=== PATIENT | male | born 1950 | race Caucasian/White ===

== ENCOUNTER 2024-07-04 18:52 | Inpatient (IN) | payer MEDICARE, MEDICAID ==
[~2024-07-04] VITALS: Ht 177.8 cm; Wt 74.6 kg
[2024-07-04 20:07] LABS: APPEARANCE,URINE CLEAR (CLEAR); BILIRUBIN,URINE NEGATIVE (NEGATIVE); COLOR,URINE YELLOW (YELLOW); GLUCOSE, URINE (UA) NEGATIVE (NEGATIVE); KETONES,URINE NEGATIVE (NEGATIVE); LEUKOCYTE ESTERASE ,URINE NEGATIVE (NEGATIVE); NITRATE,URINE NEGATIVE (NEGATIVE); OCCULT BLOOD,URINE NEGATIVE (NEGATIVE); PH,URINE 5.5 (5.0-8.0); PH,URINE DRUG SCREEN 5.5 (5.0-8.0); PROTEIN,URINE NEGATIVE (NEGATIVE); SPECIFIC GRAVITIY, URINE 1.024 (1.003-1.030); UROBILINOGEN,URINE <=1.0 mg/dL (<=1.0)
[2024-07-04] MEDS ORDERED: FOLI-130 PO (20:12)
[2024-07-04] MEDS ORDERED: FLUO-418 PO (20:12)
[2024-07-04] MEDS ORDERED: DONE-52 PO (20:12)
[2024-07-04 20:15] LABS: ALCOHOL, URINE DRUG SCREEN NEGATIVE (NEGATIVE); AMPHET/METH SCREEN,URINE NEGATIVE (NEGATIVE); BARBITURATE SCREEN, URINE NEGATIVE (NEGATIVE); BENZODIAZEPINES SCREEN,URINE NEGATIVE (NEGATIVE); CANNABINOID SCREEN,URINE NEGATIVE (NEGATIVE); COCAINE SCREEN,URINE NEGATIVE (NEGATIVE); METHADONE SCREEN, URINE NEGATIVE (NEGATIVE); OPIATE SCREEN,URINE NEGATIVE (NEGATIVE); PHENCYCLIDINE SCREEN,URINE NEGATIVE (NEGATIVE)
[2024-07-04 20:35] LABS: COVID AG,FIA SOURCE NASAL SWAB
[2024-07-04 20:50] LABS: EOSINOPHILS % (AUTO) 2.7 % (1.0-6.0); HEMATOCRIT 43.9 % (41-53); HEMOGLOBIN 14.8 g/dL (13.5-17.5); LYMPHOCYTES # (AUTO) 1.9 K/uL (1.0-4.8); LYMPHOCYTES % (AUTO) 26.7 % (22.0-44.0); MEAN CORPUSCULAR HEMOGLOBIN 30.3 pg (26.0-34.0); MEAN CORPUSCULAR HGB CONC 33.7 G/dL (31.0-37.0); MEAN CORPUSCULAR VOLUME 90 fL (80-100); MONOCYTES # (AUTO) 0.7 K/uL (0.1-1.0); MONOCYTES % (AUTO) 9.5 % (2.0-9.0); NEUTROPHILS # (AUTO) 4.3 K/uL (1.8-7.7); NEUTROPHILS % (AUTO) 60.1 % (40.0-70.0); PLATELET COUNT (AUTO) 237 K/uL (150-450); RED BLOOD CELL COUNT(AUTO) 4.88 MIL/uL (4.50-5.90); RED CELL DISTRIBUTION WIDTH 13.9 % (11.5-14.5); WHITE BLOOD COUNT (AUTO) 7.1 K/uL (4.5-11.0)
[2024-07-04] MEDS: ACETAMINOPHEN 500 MG TABLET PO ONE (20:56)
[2024-07-04 20:58] LABS: SARS-COV2 (COVID) ANTIGEN,FIA Negative (Negative)
[2024-07-04 20:59] LABS: ANION GAP 10 mmol/L (8-16); CALCIUM, TOTAL 9.3 mg/dL (8.8-10.5); CARBON DIOXIDE 26 mmol/L (22-29); CHLORIDE 102 mmol/L (98-107); CREATININE 0.98 mg/dL (0.60-1.30); GLOMERULAR FILTR. RATE CALC > 60 mL/min (>60); GLUCOSE,RANDOM 93 mg/dL (70-110); POTASSIUM 3.7 mmol/L (3.5-5.1); SODIUM SERUM 138 mmol/L (136-145); UREA NITROGEN, BLOOD 12 mg/dL (7-18)
[2024-07-04 21:08] LABS: ALCOHOL, BLOOD (SERUM) < 3 mg/dL (0-10)
[2024-07-04] MEDS ORDERED: HALOPERIDOL 5 MG TABLET PO PRN (21:15)
[2024-07-05 01:59] VITALS: O2SAT 100
[2024-07-05] MEDS ORDERED: IBUPROFEN 600 MG TABLET PO PRN (02:00)
[2024-07-05 03:10] VITALS: BP 122/71; PULSE 62; RESP 18; TEMP 97.7; O2SAT 98
[2024-07-05] MEDS: LORazepam 2 MG TABLET PO PRN (03:35)
[2024-07-05] MEDS ORDERED: ONDANSETRON 4 MG TABLET PO PRN (04:15)
[2024-07-05] MEDS ORDERED: OMEPRAZOLE 20 MG CAPSULE PO PRN (04:15)
[2024-07-05] MEDS ORDERED: CloNIDine HCL 0.1 MG TABLET PO PRN (04:15)
[2024-07-05] MEDS ORDERED: MAGNESIUM HYDROXIDE SUSPENSION 30 ML UDCUP PO PRN ×2 (04:15→10:30)
[2024-07-05] MEDS ORDERED: PETROLATUM,WHITE 28 GM JELLY TP PRN (04:15)
[2024-07-05] MEDS ORDERED: MAG HYDROX/ALUMINUM HYD/SIMETH ES 30 ML SUSPENSION UDCUP PO PRN ×2 (04:15→10:30)
[2024-07-05] MEDS ORDERED: BACITRACIN 28 GM OINTMENT TP PRN (04:15)
[2024-07-05] MEDS ORDERED: DOCUSATE SODIUM 100 MG CAPSULE PO PRN (04:15)
[2024-07-05] MEDS ORDERED: BENZOCAINE/MENTHOL LOZENGE PO PRN (04:15)
[2024-07-05 08:34] VITALS: BP 111/73; PULSE 89; RESP 18; TEMP 97.9; O2SAT 100
[2024-07-05] MEDS: DONEPEZIL HCL 5 MG TABLET PO SCH (09:00)
[2024-07-05] MEDS: FOLIC ACID 1 MG TABLET PO SCH (09:00)
[2024-07-05] MEDS ORDERED: PROMETHAZINE HCL 25 MG TABLET PO PRN (10:30)
[2024-07-05] MEDS ORDERED: ACETAMINOPHEN 325 MG TABLET PO PRN (10:30)
[2024-07-05] MEDS ORDERED: BREXPIPRAZOLE 0.25 MG TABLET PO PRN (10:30)
[2024-07-05] MEDS ORDERED: TUBERCULIN, PURIFIED PROTEIN DERIVATIVE 5 TU/0.1 ML SYRINGE ID ONE (10:30)
[2024-07-05] MEDS ORDERED: GuaiFENesin/D-METHORPHAN [SUGAR-FREE] 200-20MG/10 ML SYRUP UDCUP PO PRN (10:30)
[2024-07-05] MEDS ORDERED: HydrOXYzine PAMOATE 50 MG CAPSULE PO PRN (10:30)
[2024-07-05] MEDS: THIAMINE 100 MG TABLET PO SCH (17:27)
[2024-07-05 20:22] VITALS: BP 118/76; PULSE 70; RESP 18; TEMP 97.8; O2SAT 97
[2024-07-05] MEDS: DIVALPROEX SODIUM 250 MG ER TABLET PO SCH (21:42)
[2024-07-05] MEDS: MELATONIN 5 MG TABLET PO SCH (21:43)
[2024-07-05] MEDS: BREXPIPRAZOLE 0.25 MG TABLET PO SCH (21:43)
[2024-07-06] MEDS: ZOLPIDEM TARTRATE 10 MG TABLET PO PRN (00:50)
[2024-07-06] MEDS: LOPERAMIDE HCL 2 MG CAPSULE PO PRN (06:28)
[2024-07-06 08:32] VITALS: BP 119/81; PULSE 76; RESP 18; TEMP 98; O2SAT 97
[2024-07-06] MEDS ORDERED: FOLIC ACID 1 MG TABLET PO SCH (09:00)
[2024-07-06] MEDS: MULTIVITAMINS WITH MINERALS, THERAPEUTIC TABLET PO SCH (09:21)
[2024-07-06] MEDS ORDERED: LORazepam 2 MG TABLET PO PRN (21:15)
[2024-07-06 21:18] VITALS: BP 106/55; PULSE 66; RESP 16; TEMP 97.1; O2SAT 96
[2024-07-07] VITALS (7 sets, daily range): BP systolic 101–118; BP diastolic 66–76; PULSE 67–86; RESP 16–18; TEMP 97.3–98.1; O2SAT 96–98
[2024-07-07] MEDS: LOPERAMIDE HCL 2 MG CAPSULE PO PRN (00:47)
[2024-07-07] MEDS: IBUPROFEN 600 MG TABLET PO PRN (00:55)
[2024-07-07] MEDS: ALBUTEROL SULFATE HFA 90 MCG/PUFF 8 GM INHALER IH PRN (04:07)
[2024-07-07 09:05] LABS: HEMOGLOBIN A1C 5.5 % (3.8-5.6)
[2024-07-07 09:08] LABS: CHOL/HDL RATIO 2.7 (4.2-7.3); FREE T4 (FREE THYROXINE) 0.87 ng/dL (0.76-1.46); THYROID STIMULATING HORMONE 0.54 uIU/mL (0.36-3.74)
[2024-07-07 10:21] LABS: C.DIFF GDH ANTIGEN, Stool Negative (Negative); C.DIFF TOXINS A&B, Stool Negative (Negative)
[2024-07-08 08:35] VITALS: BP 89/58; PULSE 72; RESP 17; TEMP 97.8; O2SAT 97
[2024-07-08 09:04] VITALS: BP 93/61; PULSE 75; RESP 18; TEMP 98.1; O2SAT 96
[2024-07-08] MEDS: LACTOBAC ACID/BULG/BIFID/THERM TABLET PO SCH (12:45)
[2024-07-08] MEDS: PANTOPRAZOLE SODIUM 40 MG DR TABLET PO SCH (13:11)
[2024-07-09 05:06] VITALS: BP 100/62; PULSE 61; RESP 17; TEMP 98; O2SAT 96
[2024-07-09 13:00] VITALS: BP 105/65; PULSE 72; RESP 18; TEMP 97.8; O2SAT 97
[2024-07-09] MEDS: INFLUENZA VIRUS VACCINE TVS (6MO+) 2024-25/PF 45 MCG/0.5 ML SYRINGE IM. ONE (17:13)
[2024-07-09] MEDS: PNEUMOCOCCAL VACCINE POLYVALENT 0.5 ML SYRINGE [PPSV23] IM. ONE (17:13)
[2024-07-09 20:12] VITALS: BP 102/66; PULSE 83; RESP 18; TEMP 97.9; O2SAT 98
[2024-07-10 02:50] VITALS: BP 109/70; PULSE 94; RESP 18; TEMP 97.6; O2SAT 98
[2024-07-10] MEDS: ZOLPIDEM TARTRATE 10 MG TABLET PO PRN (02:54)
[2024-07-10 08:22] VITALS: BP 90/66; PULSE 62; RESP 16; TEMP 97.1; O2SAT 98
[2024-07-10 09:53] LABS: BASOPHILS % (AUTO) 0.3 % (0.0-2.0); EOSINOPHILS % (AUTO) 11.9 % (1.0-6.0); HEMATOCRIT 42.2 % (41-53); HEMOGLOBIN 14.2 g/dL (13.5-17.5); LYMPHOCYTES # (AUTO) 1.9 K/uL (1.0-4.8); MEAN CORPUSCULAR HEMOGLOBIN 30.5 pg (26.0-34.0); MEAN CORPUSCULAR HGB CONC 33.8 G/dL (31.0-37.0); MEAN CORPUSCULAR VOLUME 90 fL (80-100); MONOCYTES # (AUTO) 0.7 K/uL (0.1-1.0); MONOCYTES % (AUTO) 9.7 % (2.0-9.0); NEUTROPHILS # (AUTO) 3.9 K/uL (1.8-7.7); NEUTROPHILS % (AUTO) 53.1 % (40.0-70.0); PLATELET COUNT (AUTO) 217 K/uL (150-450); RED BLOOD CELL COUNT(AUTO) 4.67 MIL/uL (4.50-5.90); RED CELL DISTRIBUTION WIDTH 14.1 % (11.5-14.5); WHITE BLOOD COUNT (AUTO) 7.4 K/uL (4.5-11.0)
[2024-07-10 20:24] VITALS: BP 103/61; PULSE 60; RESP 16; TEMP 97.7; O2SAT 95
[2024-07-11 08:24] VITALS: BP 100/68; PULSE 62; RESP 17; TEMP 97.5; O2SAT 97
[2024-07-11 09:23] VITALS: RESP 18; O2SAT 98
[2024-07-11] MEDS: ACETAMINOPHEN 325 MG TABLET PO PRN (09:23)
[2024-07-11 20:17] VITALS: BP 110/68; PULSE 65; RESP 18; TEMP 98.1; O2SAT 95
[2024-07-12 08:21] VITALS: BP 100/60; PULSE 60; RESP 17; TEMP 98; O2SAT 96
[2024-07-12] MEDS ORDERED: MELA5TAB40 PO (08:23)
[2024-07-12] MEDS ORDERED: BREX0.25 PO (08:23)
[2024-07-12] MEDS ORDERED: DIVA-85 PO (08:23)
== END 2024-07-12 12:24 | DRG 885 ==
LOC: EMS 18:52 → B2X 07-05 01:45
PROVIDERS: ADMIT Psychiatry & Neurology Psychiatry; ATTEND Psychiatry & Neurology Psychiatry
PROC: GZHZZZZ Group Psychotherapy (ICD-10-PCS; principal; 2024-07-05)
PROC: GZ51ZZZ Individual Psychotherapy, Behavioral (ICD-10-PCS; 2024-07-05)
PROC: GZ56ZZZ Individual Psychotherapy, Supportive (ICD-10-PCS; 2024-07-05)
PROC: GZ58ZZZ Individual Psychotherapy, Cognitive-Behavioral (ICD-10-PCS; 2024-07-05)
DX: F25.0 Schizoaffective disorder, bipolar type (principal); G47.00 Insomnia, unspecified; K59.00 Constipation, unspecified; N50.811 Right testicular pain; R45.850 Homicidal ideations; F03.90 Unspecified dementia, unspecified severity, without behavioral disturbance, psychotic disturbance, mood disturbance, and anxiety; Z20.822 Contact with and (suspected) exposure to COVID-19; Y90.9 Presence of alcohol in blood, level not specified; K21.9 Gastro-esophageal reflux disease without esophagitis; F10.20 Alcohol dependence, uncomplicated; M13.88 Other specified arthritis, other site; Z55.9 Problems related to education and literacy, unspecified; Z59.9 Problem related to housing and economic circumstances, unspecified; Z63.9 Problem related to primary support group, unspecified; Z65.3 Problems related to other legal circumstances
CPT/HCPCS: 76870; 80048; 80061; 80307; 81003; 83036; 84439; 84443; 85025; 86592; 87081; 87324; 87449; 87481; 90686; 99285; G0480; J3535

== ENCOUNTER 2024-07-08 17:31 | Emergency (ER) | payer MEDICARE, MEDICAID ==
[~2024-07-08] VITALS: Ht 182.9 cm; Wt 81.8 kg
[~2024-07-08 17:31] MED LIST: DONE-52 PO; FLUO-418 PO; FOLI-130 PO
[2024-07-08 19:30] VITALS: TEMP 98.4
[2024-07-08 21:13] LABS: BASOPHILS % (AUTO) 0.3 % (0.0-2.0); EOSINOPHILS % (AUTO) 7.1 % (1.0-6.0); HEMATOCRIT 46.3 % (41-53); HEMOGLOBIN 15.6 g/dL (13.5-17.5); LYMPHOCYTES # (AUTO) 1.3 K/uL (1.0-4.8); LYMPHOCYTES % (AUTO) 11.2 % (22.0-44.0); MEAN CORPUSCULAR HEMOGLOBIN 30.4 pg (26.0-34.0); MEAN CORPUSCULAR HGB CONC 33.7 G/dL (31.0-37.0); MEAN CORPUSCULAR VOLUME 90 fL (80-100); MONOCYTES % (AUTO) 9.1 % (2.0-9.0); NEUTROPHILS # (AUTO) 8.2 K/uL (1.8-7.7); NEUTROPHILS % (AUTO) 72.3 % (40.0-70.0); PLATELET COUNT (AUTO) 240 K/uL (150-450); RED BLOOD CELL COUNT(AUTO) 5.13 MIL/uL (4.50-5.90); RED CELL DISTRIBUTION WIDTH 14.4 % (11.5-14.5); WHITE BLOOD COUNT (AUTO) 11.4 K/uL (4.5-11.0)
[2024-07-08 21:21] LABS: ANION GAP 10 mmol/L (8-16); CALCIUM, TOTAL 8.6 mg/dL (8.8-10.5); CARBON DIOXIDE 26 mmol/L (22-29); CHLORIDE 103 mmol/L (98-107); CREATININE 0.97 mg/dL (0.60-1.30); GLOMERULAR FILTR. RATE CALC > 60 mL/min (>60); GLUCOSE,RANDOM 93 mg/dL (70-110); SODIUM SERUM 139 mmol/L (136-145); UREA NITROGEN, BLOOD 17 mg/dL (7-18)
[2024-07-08 22:25] LABS: APPEARANCE,URINE CLEAR (CLEAR); BILIRUBIN,URINE NEGATIVE (NEGATIVE); COLOR,URINE YELLOW (YELLOW); GLUCOSE, URINE (UA) NEGATIVE (NEGATIVE); LEUKOCYTE ESTERASE ,URINE NEGATIVE (NEGATIVE); NITRATE,URINE NEGATIVE (NEGATIVE); OCCULT BLOOD,URINE NEGATIVE (NEGATIVE); PH,URINE 5.5 (5.0-8.0); PROTEIN,URINE 30-70 mg/dL (NEGATIVE); SPECIFIC GRAVITIY, URINE 1.031 (1.003-1.030); UROBILINOGEN,URINE <=1.0 mg/dL (<=1.0)
[2024-07-08] MEDS: OxyCODONE HCL/ACETAMINOPHEN 5-325 MG TABLET PO ONE (22:42)
[2024-07-09 03:50] VITALS: BP 118/72; PULSE 94; RESP 18; O2SAT 98
== END 2024-07-09 04:35 | disposition short-term general hospital (02) ==
LOC: EMS 17:31
DX: F20.9 Schizophrenia, unspecified (principal); N50.82 Scrotal pain; K21.9 Gastro-esophageal reflux disease without esophagitis; Z79.899 Other long term (current) drug therapy
CPT/HCPCS: 76870; 80048; 81003; 85025; 99284